=== PATIENT | female | born 1975 | race Caucasian/White ===

== ENCOUNTER → 2016-09-22 | Outpatient (CLI) | payer OTHER ==
--- NOTE | 2016-09-23 08:07 | XR ---
EXAMINATION TYPE: XR chest 2V DATE OF EXAM: 09/22/2016 COMPARISON: None HISTORY: 41-year-old female research study, clinical trial for psoriasis. Positive TB test. TECHNIQUE: Frontal and lateral views FINDINGS: The cardiomediastinal silhouette, aorta, and pulmonary vasculature are within normal limits. Large pa tient body habitus casts hazy densities over the mid to lower lungs. Otherwise, lungs and pleural spa darci are clear. IMPRESSION: No acute cardiopulmonary process.
== END | disposition home or self-care (01) ==
LOC: RADXRMAIN 18:20
PROVIDERS: ATTEND Dermatology MOHS-Micrographic Surgery
DX: Z11.1 Encounter for screening for respiratory tuberculosis (principal)
CPT/HCPCS: 71020

== ENCOUNTER → 2018-05-09 | Outpatient (CLI) | payer OTHER ==
--- NOTE | 2018-05-09 22:59 | XR ---
EXAMINATION TYPE: XR chest 2V DATE OF EXAM: 05/09/2018 COMPARISON: 09/22/2016 HISTORY: Clinical trial TECHNIQUE: Frontal and lateral views of the chest are obtained. FINDINGS: Heart and mediastinum are normal. Lungs are clear. Diaphragm is normal. Bony thorax appear s normal. Pulmonary vascularity is normal. IMPRESSION: Normal chest. No change.
== END | disposition home or self-care (01) ==
LOC: RADXRMAIN 18:07
PROVIDERS: ATTEND Dermatology MOHS-Micrographic Surgery
DX: Z00.6 Encounter for examination for normal comparison and control in clinical research program (principal)
CPT/HCPCS: 71046

== ENCOUNTER → 2018-08-15 | Outpatient (CLI) | payer OTHER ==
[2018-08-15 16:18] LABS: Blood Urea Nitrogen 9 mg/dL (7-17)
--- NOTE | 2018-08-16 07:49 | CT ---
EXAMINATION TYPE: CT neck chest w con DATE OF EXAM: 08/15/2018 COMPARISON: NONE HISTORY: Enlarged lymph nodes and difficulty breathing. CT DLP: 1770 mGycm. Automated Exposure Control for Dose Reduction was Utilized. TECHNIQUE: CT scan of the neck and thorax are performed following with IV Contrast, patient injected with 100ml mL of Isovue 300. FINDINGS: NECK: FINDINGS: Airway: No gross abnormality seen. Parotid/submandibular glands: Few benign-appearing subcentimeter intraparotid lymph nodes. Carotid/Vascular Structures: Poorly opacified arterial system due to delayed imaging. Osseous Structures: Slight dextroconvex scoliotic curvature. Other: Scattered subcentimeter lymph nodes throughout the neck bilaterally. No suspicious greater aure n 1 cm adenopathy. CHEST: LUNGS: The lungs are grossly clear, there is no concerning parenchymal mass or nodule identified. T here is no pleural effusion or pneumothorax seen. The tracheobronchial tree is patent. MEDIASTINUM: There are no greater than 1 cm hilar or mediastinal lymph nodes. No cardiomegaly or pe ricardial effusion is seen. OTHER: Liver is diffusely low dense consistent with fatty infiltration. Prominent but subcentimeter b ilateral axillary lymph nodes favored benign. IMPRESSION: No suspicious neck or thoracic adenopathy. Patent airway. No suspicious masses.
== END ==
LOC: RADCTMAIN 15:35
PROVIDERS: ATTEND Internal Medicine Hematology & Oncology
DX: R59.0 Localized enlarged lymph nodes (principal)
CPT/HCPCS: 82565; 84520; 70491; 71260; 36415; Q9967

== ENCOUNTER → 2018-11-16 | Outpatient (CLI) | payer OTHER ==
--- NOTE | 2018-11-16 10:04 | US ---
EXAMINATION TYPE: US liver DATE OF EXAM: 11/16/2018 COMPARISON: NONE CLINICAL HISTORY: R79.89 elevated LFT'S. Elevated liver enzymes EXAM MEASUREMENTS: Liver Length: 22.9 cm Gallbladder Wall: 0.2 cm CBD: 0.4 cm Right Kidney: 10.7 x 5.4 x 5.3 cm Difficult and limited study due to patient body habitus Pancreas: visualized portions wnl, limited by overlying midline bowel gas Liver: enlarged, attenuating, increased echogenicity, heterogeneous, decreased visualization of vess els suggestive of fatty infiltration. This finding limits evaluation for underlying masses. Gallbladder: wnl Evidence for sonographic Zambrano's sign: no CBD: visualized portions wnl, limited by overlying bowel gas Right Kidney: wnl IMPRESSION: 1. Sonographic findings most commonly related to hepatic steatosis, appearing at least moderate in de gree. Correlate with liver function test results. 2. Limited exam due to patient body habitus with suboptimal visualization of the pancreas and common bile duct. No current sonographic evidence of cholelithiasis nor acute cholecystitis.
--- NOTE | 2018-11-16 10:10 | US ---
EXAMINATION TYPE: US pelvis complete transvag DATE OF EXAM: 11/16/2018 COMPARISON: NONE CLINICAL HISTORY: pelvic fullness; IUD in tete. Irregular bleeding, pelvic fullness, patient has IUD, 6, para 1, miscarriage 5 TECHNIQUE: . Transabdominal sonographic images of the pelvis were acquired. Transvaginal sonographi c images were medically necessary to better assess the following anatomy: endometrium and ovaries Date of LMP: August 2018 EXAM MEASUREMENTS: Uterus: 8.2 x 3.6 x 4.1 cm Endometrial Stripe: 0.6 cm Right Ovary: 3.0 x 1.3 x 2.3 cm Left Ovary: not seen Difficult and limited study due to patient body habitus 1. Uterus: anteverted, heterogeneous 2. Endometrium: IUD appears in place, hyperechoic linear echo seen within endocervical canal 3. Right Ovary: 1.4 x 1.0 x 1.0cm dominant follicle 4. Left Ovary: not seen due to overlying bowel gas 5. Bilateral Adnexa: wnl 6. Posterior cul-de-sac: wnl IMPRESSION: 1. Heterogenous uterine myometrium. No discrete leiomyomas seen. Adenomyosis is possible and could BE further characterized with MRI pelvis. 2. Intrauterine device appears appropriately placed. 3. Dominant follicle is noted of the right ovary, physiologic. Left ovary is not seen due to overlyin g bowel gas.
== END | disposition home or self-care (01) ==
LOC: RADUSWWP 08:52
PROVIDERS: ATTEND Family Medicine
DX: K76.0 Fatty (change of) liver, not elsewhere classified (principal); R79.89 Other specified abnormal findings of blood chemistry; Z97.5 Presence of (intrauterine) contraceptive device
CPT/HCPCS: 76705; 76830; 76856

== ENCOUNTER → 2019-04-24 | Outpatient (CLI) | payer OTHER ==
--- NOTE | 2019-04-25 04:51 | XR ---
EXAMINATION TYPE: XR thoracic spine 3 views complete, XR lumbosacral spine 5 views DATE OF EXAM: 04/24/2019 Comparison: None Clinical History: 44-year-old female right-sided lower back pain, M54.9 Findings: Thoracic spine: 12 rib-bearing thoracic vertebral bodies. All pedicles are visualized. Mild degenerative disc disease with endplate spondylosis throughout the mid thoracic spine. Vertebral body heights are preserved an d alignment is maintained. Lumbar spine: 5 lumbar type vertebral bodies. Hypertrophic facet arthropathy lower lumbar spine. No pars interartic ularis defect. Trace grade 1 anterolisthesis at L4-L5. Otherwise, alignment is maintained. Mild disc space narrowing at L4-L5 and L5-S1. Impression: 1. Thoracic spine: Mild degenerative disc disease throughout the mid thoracic spine. No vertebral com pression collapse or malalignment. 2. Lumbar spine: Hypertrophic facet arthropathy lower lumbar spine with trace grade 1 anterolisthesis at L4-L5. Mild degenerative disc disease L4-L5 and L5-S1. No vertebral compression collapse.
== END | disposition home or self-care (01) ==
LOC: RADXRMAIN 17:16
PROVIDERS: ATTEND Family Medicine
DX: M51.34 Other intervertebral disc degeneration, thoracic region (principal); M43.16 Spondylolisthesis, lumbar region; M51.36 Other intervertebral disc degeneration, lumbar region
CPT/HCPCS: 72072; 72110

== ENCOUNTER → 2019-05-04 | Outpatient (CLI) | payer OTHER | END | disposition home or self-care (01) | LOC: LABWHC1 17:03 | PROVIDERS: ATTEND Dermatology | DX: L40.0 Psoriasis vulgaris (principal) | CPT/HCPCS: 36415; 86480 ==

== ENCOUNTER → 2020-10-30 | Outpatient (CLI) | payer OTHER ==
[2020-10-30 14:26] LABS: HCT 38.9 % (34.0-46.0); HGB 13.4 gm/dL (11.4-16.0); MCH 31.3 pg (25.0-35.0); MCHC 34.4 g/dL (31.0-37.0); MCV 90.7 fL (80.0-100.0); Platelet Count 371 k/uL (150-450); RBC 4.29 m/uL (3.80-5.40); RDW 13.8 % (11.5-15.5); WBC 10.7 k/uL (3.8-10.6)
[2020-10-30 14:52] LABS: Eosinophils # (M) 0.64 k/uL (0-0.7); Lymphocytes # (M) 3.64 k/uL (1.0-4.8); Monocytes # (M) 0.86 k/uL (0-1.0); Neutrophils # (M) 5.56 k/uL (1.3-7.7); Neutrophils % (M) 52 %; Nucleated Red Blood Cells 0 /100 WBC (0-0); Polychromasia Present; Total Cells Counted 100
[2020-10-31 03:33] LABS: African American GFR (CKD) 101.8 (60.0-200.0); Albumin 4.7 g/dL (3.80-4.90); Albumin/Globulin Ratio 1.74 (1.60-3.17); Anion Gap 14.5 mmol/L (4.00-12.00); BUN/Creat Ratio 22.5 Ratio (12.00-20.00); Calcium 10.6 mg/dL (8.7-10.3); Carbon Dioxide 24.5 mmol/L (21.6-31.8); Globulin 2.7 g/dL (1.6-3.3); Non-African American GFR(CKD) 87.8 (60.0-200.0); Potassium 4.6 mmol/L (3.5-5.5); Total Bilirubin 0.4 mg/dL (0.2-1.2); Total Protein 7.4 g/dL (6.2-8.2)
== END | disposition home or self-care (01) ==
LOC: LABWHC1 11:57
PROVIDERS: ATTEND Internal Medicine Critical Care Medicine
DX: U07.1 COVID-19 (principal); J12.82 Pneumonia due to coronavirus disease 2019
CPT/HCPCS: 36415; 80053; 82550; 83970; 84439; 84443; 85027

== ENCOUNTER → 2020-11-17 | Outpatient (CLI) | payer OTHER ==
[2020-11-17 17:30] LABS: African American GFR (CKD) >90 (>60 ml/min/1.73 sqM); Blood Urea Nitrogen 8 mg/dL (7-17); Non-African American GFR(CKD) >90 (>60 ml/min/1.73 sqM)
--- NOTE | 2020-11-18 07:13 | CT ---
EXAMINATION TYPE: CT angio chest DATE OF EXAM: 11/17/2020 6:02 PM COMPARISON: CT chest August 15, 2018 HISTORY: Pneumonia due to covid in July 2020 CT DLP: 700 mGycm Automated exposure control for dose reduction was used. CONTRAST: CTA scan of the thorax is performed with IV Contrast, patient injected with 100 mL of Isovue 370, pul monary embolism protocol. MIP images are created and reviewed. FINDINGS: LUNGS: The lungs are grossly clear, there is no concerning parenchymal mass or nodule identified. T here is no pleural effusion or pneumothorax seen. The tracheobronchial tree is patent. MEDIASTINUM: There is suboptimal bolus with near equal contrast in right and left heart systems and m ost dense contrast in the SVC. There is no central pulmonary embolism. Cannot entirely exclude segme ntal and subsegmental PE due to heterogeneity and less than optimal opacification of peripheral vesse ls There are no greater than 1 cm hilar or mediastinal lymph nodes. No cardiomegaly or pericardial effusion is seen. OTHER: Diffuse fatty infiltration of liver is partially imaged. IMPRESSION: Suboptimal study without central pulmonary embolism. No suspicious acute pulmonary proces s.
== END | disposition home or self-care (01) ==
LOC: RADCTMAIN 16:25
PROVIDERS: ATTEND Internal Medicine Critical Care Medicine
DX: U07.1 COVID-19 (principal); J12.82 Pneumonia due to coronavirus disease 2019
CPT/HCPCS: 82565; 84520; 71275; 36415; Q9967

== ENCOUNTER → 2021-06-24 | Outpatient (CLI) | payer OTHER ==
--- NOTE | 2021-06-25 08:04 | XR ---
EXAMINATION TYPE: XR lumbosacral spine min 4V DATE OF EXAM: 06/24/2021 COMPARISON: X-ray dated 04/24/2019 INDICATION: Multiple recent falls TECHNIQUE: Standard 5 views of the lumbar spine FINDINGS: Preserved lumbar lordosis. Questionable minimal anterolisthesis of L4 over L5. No definite vertebral body collapse or acute displaced fracture. Opposing endplate osteophytosis at L3-4 and L4-5 levels. R ather maintained intervertebral disc spaces. Severe right L5-S1 facet osteoarthropathy with milder left L5-S1 and bilateral L4-5 facet osteoarthro hayden. Arterial atherosclerotic calcifications. Suspected left renal stone measuring up to 6 mm. IMPRESSION: No definite acute lumbar vertebral fracture identified. Degenerative changes and incidental findings as described above. Further CT scan or MRI assessment can be considered if clinically required.
== END | disposition home or self-care (01) ==
LOC: RADMRIMAIN 18:36
PROVIDERS: ATTEND Family Medicine
DX: M47.817 Spondylosis without myelopathy or radiculopathy, lumbosacral region (principal)
CPT/HCPCS: 72110

== ENCOUNTER → 2021-09-09 | Outpatient (CLI) | payer OTHER ==
[2021-09-09 18:38] LABS: HCT 43.1 % (37.2-46.3); MCHC 32.5 g/dL (32.0-37.0); MCV 92.5 fL (80.0-97.0); Mean Platelet Volume 9.9 fL (9.5-12.2); NRBC Per 100 WBC 0 /100 WBCS (0.0-0.0); Platelet Count 395 X 10*3/uL (140-440); RBC 4.66 X 10*6/uL (4.10-5.20); RDW 13.3 % (11.5-14.5); WBC 15.82 X 10*3/uL (4.50-10.00)
[2021-09-09 18:42] LABS: African American GFR (CKD) 87.4 (60.0-200.0); Blood Urea Nitrogen 12.1 mg/dL (9.0-27.0); Non-African American GFR(CKD) 75.4 (60.0-200.0)
[2021-09-09 18:58] LABS: Basophils # (A) 0.11 X 10*3/uL (0.00-0.10); Basophils % (A) 0.7 %; Eosinophils % (A) 1.9 %; Immature Grans, Automated 0.8 %; Lymphocytes # (A) 4.91 X 10*3/uL (0.90-5.00); Monocytes # (A) 1.03 X 10*3/uL (0.20-1.00); Monocytes % (A) 6.5 %; Neutrophils # (A) 9.34 X 10*3/uL (1.80-7.70); Neutrophils % (A) 59.1 %
== END | disposition home or self-care (01) ==
LOC: LABWHC1 13:23
PROVIDERS: ATTEND Dermatology MOHS-Micrographic Surgery
DX: L40.0 Psoriasis vulgaris (principal)
CPT/HCPCS: 36415; 82565; 84450; 84460; 84520; 85025

== ENCOUNTER → 2021-10-09 | Outpatient (CLI) | payer OTHER ==
--- NOTE | 2021-10-09 10:17 | US ---
EXAMINATION TYPE: US abdomen complete DATE OF EXAM: 10/09/2021 COMPARISON: NONE CLINICAL HISTORY: R10.84 GENERALIZED ABD PAIN. lt flank pain, h/o renal stone 17 years ago EXAM MEASUREMENTS: Liver Length: 21.2 cm Gallbladder Wall: 0.3 cm CBD: 0.5 cm Spleen: 13.6 cm Right Kidney: 10.8 x 4.8 x 5.3 cm Left Kidney: 11.2 x 5.3 x 5.8 cm Pancreas: wnl Liver: wnl Gallbladder: wnl Evidence for sonographic Zambrano's sign: no CBD: wnl Spleen: wnl Right Kidney: wnl Left Kidney: 0.8 x 0.6cm mid pole stone Upper IVC: wnl Abd Aorta: wnl The liver is homogenous. The intrahepatic portion of the IVC and proximal abdominal aorta are within normal limits. There is no evidence of cholelithiasis. Common bile duct is unremarkable. The visu alized portions of the pancreas are homogenous. The spleen is unremarkable. Kidneys are symmetric a nd free of hydronephrosis. No renal lesions are seen. IMPRESSION: Nonobstructing calculus left kidney
--- NOTE | 2021-10-09 10:18 | US ---
EXAMINATION TYPE: US transvaginal DATE OF EXAM: 10/09/2021 COMPARISON: NONE CLINICAL HISTORY: PELVIC PAIN. lt flank pain, hysterectomy 2019 for endometriosis TECHNIQUE: TV. Transvaginal sonographic images Date of LMP: 3 years ago EXAM MEASUREMENTS: Uterus: Surgically absent Endometrial Stripe: Surgically absent Right Ovary: 1.3 x 1.1 x 1.0 cm Left Ovary: 1.8 x 1.1 x 1.5 cm 1. Uterus: Surgically absent 2. Endometrium: Surgically absent 3. Right Ovary: wnl 4. Left Ovary: wnl 5. Bilateral Adnexa: wnl 6. Posterior cul-de-sac: wnl IMPRESSION: Unremarkable postoperative pelvis.
== END | disposition home or self-care (01) ==
LOC: RADUSWWP 08:54
PROVIDERS: ATTEND Family Medicine
DX: N20.0 Calculus of kidney (principal)
CPT/HCPCS: 76700; 76830

== ENCOUNTER 2023-08-11 15:47 | Inpatient (IN) | payer OTHER ==
--- NOTE | 2023-08-11 16:17 | ED ---
Female Urogenital HPI - General Source: patient, RN notes reviewed <Kayla Mishra - Last Filed: 08/11/23 16:16> - General Source: RN notes reviewed <Elena Crandall - Last Filed: 08/11/23 18:25> - General Stated complaint: abd/back pain Time Seen by Provider: 08/11/23 16:00 - History of Present Illness Initial comments: Herber catalan is a 48-year-old female who presents to the emergency department chief complaint of left-sided back and flank pain. Patient states that this pain has been ongoing over the past few weeks but is more severe today. She endorses nausea no vomiting and feelings of fevers. She denies dysuria, hematuria. endorses increase in frequency and urgency. (Kayla Mishra) 48-year-old female with history of kidney stones presenting with chief complaint of left-sided flank pain. States she has had this pain on and off for the past 2 weeks, but the pain is becoming worse. She describes the pain as colicky and radiates to the left side of her abdomen. Also states she has been urinating more frequently today, but denies dysuria or hematuria. Admits nausea but denies vomiting. States she is on 81 mg aspirin daily but denies CKD or gastric ulcers. (Elena Crandall) - Related Data Allergies Allergy/AdvReac Type Severity Reaction Status Date / Time methotrexate Allergy Anaphylaxis Verified 08/11/23 16:21 ofloxacin Allergy Anaphylaxis Verified 08/11/23 16:21 Review of Systems ROS Other: All systems not noted in ROS Statement are negative. <Kayla Mishra - Last Filed: 08/11/23 16:16> ROS Other: All systems not noted in ROS Statement are negative. <Elena Crandall - Last Filed: 08/11/23 18:25> ROS Statement: Those systems with pertinent positive or pertinent negative responses have been documented in the HPI. General Exam <Kayla Mishra - Last Filed: 08/11/23 16:16> General appearance: alert, in no apparent distress Respiratory exam: Present: normal lung sounds bilaterally. Absent: respiratory distress, wheezes, rales, rhonchi, stridor Cardiovascular Exam: Present: regular rate, normal rhythm, normal heart sounds. Absent: systolic murmur, diastolic murmur, rubs, gallop, clicks GI/Abdominal exam: Present: soft, normal bowel sounds. Absent: distended, tenderness, guarding, rebound, rigid Back exam: Absent: CVA tenderness (R), CVA tenderness (L), rash noted Psychiatric exam: Present: normal affect, normal mood Skin exam: Present: warm, dry, intact, normal color. Absent: rash <Elena Crandall - Last Filed: 08/11/23 18:25> - General Exam Comments Initial Comments: Visual Physical Exam Vital signs reviewed General: Well-appearing, nontoxic, no acute distress. Head: Normocephalic, atraumatic Eyes: PERRLA, EOMI ENT: Airway patent Chest: Nonlabored breathing Skin: No visual rash, normal skin tone Neuro: Alert and oriented 3 Musculoskeletal: No gross abnormalities (Kayla Mishra) Course Vital Signs 08/11/23 16:15 Temperature 97.7 F Pulse Rate 101 H Respiratory 18 Rate Blood Pressure 148/85 O2 Sat by Pulse 98 Oximetry Medical Decision Making <Kayla Mishra - Last Filed: 08/11/23 16:16> - Lab Data Result diagrams: 08/11/23 16:20 08/11/23 16:20 <Eelna Crandall - Last Filed: 08/11/23 18:25> - Medical Decision Making I completed the quick note portion of this chart signed Kayla Mishra PA-C (Kayla Mishra) Was pt. sent in by a medical professional or institution ([facility], JOURNEYMAN PAINTER, urgent care, hospital, or penitentiary...) When possible be specific @ -[No] Did you speak to anyone other than the patient for history (EMS, parent, family, police, friend...)? What history was obtained from this source @ -[No] Did you review nursing and triage notes (agree or disagree)? Why? @ -[I reviewed and agree with nursing and triage notes] Were old charts reviewed (outside hosp., previous admission, EMS record, old EKG, old radiological studies, urgent care reports/EKG's, penitentiary records)? Report findings @ -[No old charts were reviewed] Differential Diagnosis (chest pain, altered mental status, abdominal pain women, abdominal pain men, vaginal bleeding, weakness, fever, dyspnea, syncope, headache, dizziness, GI bleed, back pain, seizure, CVA, palpatations, mental health, musculoskeletal)? @ -Differential Abdominal Pain Women: Nephrolithiasis, appendicitis, Cholecystitis, diverticulosis, ischemic bowel, pancreatitis, hepatitis, UTI, gastroenteritis, AAA, incarcerated hernia, bowel obstruction, constipation, inflammatory bowel, hepatitis, peptic ulcer disease, splenic infarction, perforated viscus, vulvitis, ovarian torsion, PID, kidney stone, placenta abruption, this is not meant to be an all-inclusive list EKG interpreted by me (3pts min.). @ -None X-rays interpreted by me (1pt min.). @ -[None done] CT interpreted by me (1pt min.). @ -CT revealed obstructing 9.3 mm left UPJ stone causing mild to moderate hyd ronephrosis U/S interpreted by me (1pt. min.). @ -[None done] What testing was considered but not performed or refused? (CT, X-rays, U/S, labs)? Why? @ -[None] What meds were considered but not given or refused? Why? @ -[None] Did you discuss the management of the patient with other professionals (evans jacques i.e. , PA, JOURNEYMAN PAINTER, lab, RT, psych nurse, social media sr strategy manager, aerospace mechanic, teacher, security flex officer, casework manager)? Give summary @ -Discussed management of patient with Dr. De Jesus. Agreed to IV Rocephin and blood cultures. Dr. De Jesus advised admission to medicine with consult to him. Spoke with Dr. Webber who accepted patient as admission to observation. Was smoking cessation discussed for >3mins.? @ -[No] Was critical care preformed (if so, how long)? @ -[No] Were there social determinants of health that impacted care today? How? (Homelessness, low income, unemployed, alcoholism, drug addiction, transportation, low edu. Level, literacy, decrease access to med. care, residential, rehab)? @ -[No] Was there de-escalation of care discussed even if they declined (Discuss DNR or withdrawal of care, Hospice)? DNR status @ -[No] What co-morbidities impacted this encounter? (DM, HTN, Smoking, COPD, CAD, Cancer, CVA, ARF, Chemo, Hep., AIDS, mental health diagnosis, sleep apnea, morbid obesity)? @ -[None] Was patient admitted / discharged? Hospital course, mention meds given and route, prescriptions, significant lab abnormalities, going to OR and other pertinent info. @ -Patient was admitted. Patient was seen and evaluated for left flank pain x 1 day with urinary frequency. Patient is afebrile, blood pressure is normotensive. CT revealed 9.3 mm stone with mild to moderate hydronephrosis. H er white blood cell count was 15.1 and urine white blood cell count was 98. Patient was admitted to medicine with consult to urology for possible infected stone. Patient was started on IV Rocephin and blood cultures were taken. Patient was admitted to [facility]. Case discussed with Dr. Carpio Undiagnosed new problem with uncertain prognosis? @ -[No] Drug Therapy requiring intensive monitoring for toxicity (Heparin, Nitro, Insulin, Cardizem)? @ -[No] Were any procedures done? @ -[No] Diagnosis/symptom? @ -Acute left nephrolithiasis with moderate obstruction Acute, or Chronic, or Acute on Chronic? @ -Acute Uncomplicated (without systemic symptoms) or Complicated (systemic symptoms)? @ -Uncomplicated Side effects of treatment? @ -[No] Exacerbation, Progression, or Severe Exacerbation? @ -[No] Poses a threat to life or bodily function? How? (Chest pain, [place], [place], pneumonia, PE, COPD, DKA, ARF, appy, cholecystitis, CVA, Diverticulitis, Homicidal, Suicidal, threat to staff... and all critical care pts) @ -[No] (Elena Crandall) - Lab Data Lab Results 08/11/23 08/11/23 08/11/23 Range/Units 16:20 16:20 16:20 WBC 15.1 H (3.8-10.6) k/uL RBC 3.96 (3.80-5.40) m/uL Hgb 11.5 (11.4-16.0) gm/dL Hct 36.0 (34.0-46.0) % MCV 91.0 (80.0-100.0) fL MCH 29.1 (25.0-35.0) pg MCHC 32.0 (31.0-37.0) g/dL RDW 14.4 (11.5-15.5) % Plt Count 415 (150-450) k/uL MPV 7.4 Neutrophils % 76 % Lymphocytes % 16 % Monocytes % 4 % Eosinophils % 2 % Basophils % 0 % Neutrophils # 11.5 H (1.3-7.7) k/uL Lymphocytes # 2.4 (1.0-4.8) k/uL Monocytes # 0.6 (0-1.0) k/uL Eosinophils # 0.3 (0-0.7) k/uL Basophils # 0.1 (0-0.2) k/uL Sodium 137 (137-145) mmol/L Potassium 4.4 (3.5-5.1) mmol/L Chloride 101 (98-107) mmol/L Carbon Dioxide 29 (22-30) mmol/L Anion Gap 7 mmol/L BUN 19 H (7-17) mg/dL Creatinine 0.97 (0.52-1.04) mg/dL Est GFR (CKD-EPI)AfAm 79 (>60 ml/min/1.73 sqM) Est GFR (CKD-EPI)NonAf 69 (>60 ml/min/1.73 sqM) Glucose 152 H (74-99) mg/dL Calcium 10.8 H (8.4-10.2) mg/dL Total Bilirubin 0.6 (0.2-1.3) mg/dL AST 20 (14-36) U/L ALT 20 (4-34) U/L Alkaline Phosphatase 108 (38-126) U/L Total Protein 7.6 (6.3-8.2) g/dL Albumin 4.1 (3.5-5.0) g/dL Urine Color Colorless Urine Appearance Cloudy H (Clear) Urine pH 5.5 (5.0-8.0) Ur Specific [place] 1.018 (1.001-1.035) Urine Protein Negative (Negative) Urine Glucose (UA) Negative (Negative) Urine Ketones Negative (Negative) Urine Blood Negative (Negative) Urine Nitrite Negative (Negative) Urine Bilirubin Negative (Negative) Urine Urobilinogen <2.0 (<2.0) mg/dL Ur Leukocyte Esterase Large H (Negative) Urine RBC 8 H (0-5) /hpf Urine WBC 98 H (0-5) /hpf Urine WBC Clumps Occasional H (None) /hpf Ur Squamous Epith Cells 9 H (0-4) /hpf Urine Bacteria Occasional H (None) /hpf Urine Mucus Rare H (None) /hpf Disposition <aKyla Mishra - Last Filed: 08/11/23 16:16> Time of Disposition: 18:10 <Elena Crandall - Last Filed: 08/11/23 18:25> Clinical Impression: Left nephrolithiasis Disposition: ADMITTED IP TO THIS [facility] Condition: Stable Referrals: Natalya Blankenship DO [Primary Care Provider] - 1-2 days
[2023-08-11 16:52] LABS: Basophils # (A) 0.1 k/uL (0-0.2); Basophils % (A) 0 %; Eosinophils # (A) 0.3 k/uL (0-0.7); Eosinophils % (A) 2 %; HGB 11.5 gm/dL (11.4-16.0); Lymphocytes # (A) 2.4 k/uL (1.0-4.8); Lymphocytes % (A) 16 %; MCH 29.1 pg (25.0-35.0); Mean Platelet Volume 7.4; Monocytes # (A) 0.6 k/uL (0-1.0); Monocytes % (A) 4 %; Neutrophils # (A) 11.5 k/uL (1.3-7.7); Neutrophils % (A) 76 %; Platelet Count 415 k/uL (150-450); RBC 3.96 m/uL (3.80-5.40); RDW 14.4 % (11.5-15.5); WBC 15.1 k/uL (3.8-10.6)
[2023-08-11 17:01] LABS: ALT 20 U/L (4-34); AST 20 U/L (14-36); African American GFR (CKD) 79 (>60 ml/min/1.73 sqM); Albumin 4.1 g/dL (3.5-5.0); Alkaline Phosphatase 108 U/L (38-126); Anion Gap 7 mmol/L; Blood Urea Nitrogen 19 mg/dL (7-17); Calcium 10.8 mg/dL (8.4-10.2); Carbon Dioxide 29 mmol/L (22-30); Chloride 101 mmol/L (98-107); Glucose 152 mg/dL (74-99); Non-African American GFR(CKD) 69 (>60 ml/min/1.73 sqM); Potassium 4.4 mmol/L (3.5-5.1); Sodium 137 mmol/L (137-145); Total Bilirubin 0.6 mg/dL (0.2-1.3); Total Protein 7.6 g/dL (6.3-8.2)
[2023-08-11 17:11] LABS: Appearance,Urine Cloudy (Clear); Bacteria,Urine Occasional /hpf; Bilirubin,Urine Negative (Negative); Blood,Urine Negative (Negative); Color,Urine Colorless; Glucose,Urine (UA) Negative (Negative); Ketones,Urine Negative (Negative); Leukocyte Esterase,Urine Large (Negative); Mucus,Urine Rare /hpf; Nitrite,Urine Negative (Negative); PH, Urine 5.5 (5.0-8.0); Protein,Urine Negative (Negative); RBC,Urine 8 /hpf (0-5); Specific Gravity,Urine 1.018 (1.001-1.035); Squamous Epithelial Cell,Urine 9 /hpf (0-4); Urobilinogen,Urine <2.0 mg/dL (<2.0); WBC,Urine 98 /hpf (0-5)
[2023-08-11] MEDS: SODIUM CHLORIDE 0.9% 1,000 ML IV STA ×2 (17:17→19:50)
[2023-08-11] MEDS: KETOROLAC 15 MG/ML 1 ML VIAL IVP STA ×2 (17:21→20:53)
[2023-08-11] MEDS: ONDANSETRON 4 MG/2 ML VIAL IVP STA (17:21)
--- NOTE | 2023-08-11 17:32 | CT ---
EXAMINATION TYPE: CT abdomen pelvis wo con DATE OF EXAM: 08/11/2023 COMPARISON: None HISTORY: Left side flank pain CT DLP: 2233 mGycm Automated exposure control for dose reduction was used. TECHNIQUE: Helical acquisition of images was performed from the lung bases through the pelvis. FINDINGS: The lungs are clear. Gallbladder is normal and there is no gallstone, wall thickening, pericholecystic fluid or distention . There is no biliary ductal dilatation. There is no organomegaly of the liver, pancreas, spleen or adrenal glands. There is mild to moderate left hydronephrosis secondary to a 9.3 mm left UPJ calculus. The right kidn ey is unremarkable. The caliber of the abdominal aorta is normal and there is no retroperitoneal adenopathy or hemorrhage . The bowel loops are normal in caliber is no evidence of obstruction. No inflammatory changes are iden tified in the mesentery and there is no free intraperitoneal air or fluid. There is no pelvic mass, free fluid, abscess or adenopathy. 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 The osseous structures and soft tissues are unremarkable. IMPRESSION: Obstructing 9.3 mm left UPJ calculus causing mild to moderate left hydronephrosis.
[2023-08-11] MEDS ORDERED: NALOXONE 0.4 MG/ML 1 ML VIAL IV PRN (18:02)
[2023-08-12] MEDS: ONDANSETRON 4 MG/2 ML VIAL IVP PRN (01:01)
[2023-08-12] MEDS: MORPHINE SULFATE 4 MG/ML SYRINGE IVP STA (02:01)
[2023-08-12] MEDS ORDERED: DEXTROSE 50% SYRINGE 50 ML IVP PRN ×2 (05:41)
--- NOTE | 2023-08-12 05:47 | P.HPIM ---
History of Present Illness H&P Date: 08/11/23 Chief Complaint: flank pain 48 year old female with history of kidney stone , DM , hypertension Patient coming in for 2-week history of severe left flank pain 10 out of 10 in severity radiating down her groin got worse over the past couple days she is known to have history of kidney stones she denies any dysuria hematuria increased frequency of urination. She reports a lot of nausea denies any vomiting she endorses chills. But mainly her flank pain has gotten worse today she has a baby at home 22 months old and she has been pushing it to come to the hospital however due to severe pain today she decided to come in for evaluation Patient also reports history of high calcium level however she does not know what is causing it she is not aware of any testing that has been done in the past Patient otherwise denies any chest pain trouble breathing denies any GI bleeding diarrhea review of systems Pertinent positives as noted in HPI. All other systems were reviewed and are negative on exam Constitutional: No acute distress Eyes: Anicteric sclerae, moist conjunctiva, Pupils equal round reactive to light ENMT: NC/AT Oropharynx clear, no erythema, or exudates Neck: Supple, no masses, or JVD No carotid bruits No thyromegaly Lungs: Clear to auscultation Clear to percussion Normal respiratory effort, no accessory muscle use Cardiovascular: Heart regular in rate and rhythm, No murmurs, gallops, or rubs No peripheral edema Abdominal: Soft Tenderness to palpation of the left costovertebral angle and left flank, no guarding, rebound or rigidity Abdomen moving with respiration Normoactive bowel sounds Extremities: No digital cyanosis No clubbing Pedal pulses intact and symmetrical Radial pulses intact and symmetrical No calf tenderness Psychiatric: Alert and oriented to person, place and time Appropriate affect fair judgement Neuro Muscles Strength 5/5 in all 4 extremities Sensation to light touch grossly present throughout Cranial nerves II-XII grossly intact Past Medical History Past Medical History: Diabetes Mellitus, Hyperlipidemia, Hypertension 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 History of Any Multi-Drug Resistant Organisms: None Reported Past Surgical History: Back Surgery, Section, Hysterectomy, Orthopedic Surgery Additional Past Surgical History / Comment(s): carpel, laparoscopy Past Psychological History: No Psychological Hx Reported, Anxiety, Depression Smoking Status: Former smoker Past Alcohol Use History: Occasional Past Drug Use History: Marijuana Medications and Allergies Home Medications Medication Instructions Recorded Confirmed Type Aspirin [[place] Aspirin EC] 81 mg PO DAILY 08/11/23 08/11/23 History Atorvastatin [Lipitor] 20 mg PO HS 08/11/23 08/11/23 History Cholecalciferol (Vitamin D3) 50 mcg PO DAILY 08/11/23 08/11/23 History [Vitamin D3 (50 Mcg = 2000 Iu)] Fluticasone Nasal [place] [Flonase 1 spray EA NOSTRIL DAILY PRN 08/11/23 08/11/23 History Nasal [place]] Insulin Glargine,Hum.rec.anlog 36 units SQ HS 08/11/23 08/11/23 History [Lantus Solostar Pen] Lisinopril-Hctz 20-25 mg 1 tab PO DAILY 08/11/23 08/11/23 History [Zestoretic 20-25] Loratadine [Claritin] 10 mg PO HS 08/11/23 08/11/23 History Magnesium Oxide [Mag-Ox] 400 mg PO DAILY 08/11/23 08/11/23 History Melatonin 5 mg PO HS PRN 08/11/23 08/11/23 History Montelukast [Singulair] 10 mg PO HS 08/11/23 08/11/23 History Naproxen [Naprosyn] 500 mg PO BID PRN 08/11/23 08/11/23 History Omeprazole [PriLOSEC] 20 mg PO DAILY 08/11/23 08/11/23 History Pioglitazone [Actos] 30 mg PO DAILY 08/11/23 08/11/23 History Secukinumab [Cosentyx Pen (2 Pens)] 150 mg SQ QMONTHLY 08/11/23 08/11/23 History allopurinoL [Zyloprim] 100 mg PO DAILY 08/11/23 08/11/23 History buPROPion HCL [Wellbutrin XL] 150 mg PO DAILY 08/11/23 08/11/23 History metFORMIN HCL [Glucophage] 1,000 mg PO W/SUPPER 08/11/23 08/11/23 History metFORMIN HCL [Glucophage] 500 mg PO DAILY 08/11/23 08/11/23 History Allergies Allergy/AdvReac Type Severity Reaction Status Date / Time methotrexate Allergy Anaphylaxis Verified 08/11/23 19:23 ofloxacin Allergy Anaphylaxis Verified 08/11/23 19:23 Physical Exam Vitals: Vital Signs Temp Pulse Resp BP Pulse Ox 08/12/23 03:00 91 18 135/78 99 08/12/23 00:00 99 20 144/78 99 08/11/23 21:42 98.5 F 98 18 124/73 99 08/11/23 16:15 97.7 F 101 H 18 148/85 98 Intake and Output 08/11/23 08/11/23 08/12/23 14:59 22:59 06:59 Other: Weight 120.202 kg Results CBC & Chem 7: 08/11/23 16:20 08/11/23 16:20 Labs: Abnormal Lab Results - Last 24 Hours (Table) 08/11/23 08/11/23 08/11/23 Range/Units 16:20 16:20 16:20 WBC 15.1 H (3.8-10.6) k/uL Neutrophils # 11.5 H (1.3-7.7) k/uL BUN 19 H (7-17) mg/dL Glucose 152 H (74-99) mg/dL Calcium 10.8 H (8.4-10.2) mg/dL Urine Appearance Cloudy H (Clear) Ur Leukocyte Esterase Large H (Negative) Urine RBC 8 H (0-5) /hpf Urine WBC 98 H (0-5) /hpf Urine WBC Clumps Occasional H (None) /hpf Ur Squamous Epith Cells 9 H (0-4) /hpf Urine Bacteria Occasional H (None) /hpf Urine Mucus Rare H (None) /hpf Assessment and Plan Assessment: 48-year-old female with diabetes mellitus hypertension history of kidney stones coming in with severe colicky left flank pain I discussed the case with ED doctor and accepted the admission for obstructive left UPJ stone with moderate hydronephrosis with anticipated length of stay more than 2 midnights Sepsis secondary to complicated UTI secondary to obstructing kidney stone Obstructive kidney stone CT finding of 9.3 mm left UPJ obstructing stone with moderate hydronephrosis Renal function unremarkable sodium 137 potassium 4.4 BUN 19 creatinine 0.9 Urine analysis positive for leukocyte esterase follow-up cultures Follow-up cultures Initiated on Rocephin 1 g IV piggyback daily Pain control with Toradol 50 mg IV push every 6 hours as needed Morphine IV push 4 mg as needed for pain control Zofran 4 mg IV push every 8 hours as needed for nausea vomiting IV fluid hydration status post 2 L normal saline continue with 130 cc/h Urology consultation Chronic conditions Hypertension controlled continue with home blood pressure medications Lisinopril 20 mg daily Hold hydrochlorothiazide Hypercalcemia Patient reports long history of hypercalcemia borderline Hold hydrochlorothiazide this could be a reason for hyperglycemia Check PTH intact, phosphorus level, vitamin D hydroxy 25, vitamin hydroxy 1, 25 levels Diabetes mellitus insulin sliding scale Full code DVT prophylaxis mechanical due to anticipated surgery GI prophylaxis Protonix p.o. daily
[2023-08-12] MEDS: MORPHINE SULFATE 4 MG/ML SYRINGE IVP PRN (06:12)
[2023-08-12] MEDS: SODIUM CHLORIDE 0.9% 1,000 ML IV SCH (06:17)
[2023-08-12] MEDS: KETOROLAC 15 MG/ML 1 ML VIAL IVP PRN (06:17)
[2023-08-12 06:26] LABS: Glucose,Whole Blood 180 mg/dL (70-110)
[2023-08-12] MEDS: INSULIN ASPART (NovoLOG) 100 UNIT/ML VIAL SQ SCH (06:55)
[2023-08-12] MEDS: lisinopriL 20 MG TAB PO SCH (07:35)
[2023-08-12] MEDS: buPROPion XL 150 MG TAB.ER.24H PO SCH (07:38)
[2023-08-12] MEDS: PANTOPRAZOLE 40 MG TABLET PO SCH (07:38)
--- NOTE | 2023-08-12 08:09 | P.GSCN ---
History of Present Illness Consult date: 08/12/23 History of present illness: 48 yo female admitted with left flank pain due to a 9 mm lt upj stone. She presented with a 2 week history of left flank pain. Her urine is somewhat inflammed For this reason she was admitted for iv ab and further evaluation. the patient is afebrile and her vital signs are stable. She is feeling better. She passed a stone many years ago. Review of Systems All systems: negative - Constitutional Denies fever, Denies weight loss - EENT Eyes: denies blurred vision Ears, nose, mouth and throat: Denies dysphagia - Cardiovascular Denies chest pain, Denies shortness of breath - Respiratory Denies cough, Denies 7 - Gastrointestinal Reports as per HPI - Genitourinary Genitourinary: Denies dysuria, Denies hematuria - Integumentary Denies rash, Denies unusual bruising - Neurological Denies headaches, Denies syncope - Hematologic/Lymphatic Denies easy bleeding, Denies easy bruising Past Medical History Past Medical History: Diabetes Mellitus, Hyperlipidemia, Hypertension 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 History of Any Multi-Drug Resistant Organisms: None Reported Past Surgical History: Back Surgery, Section, Hysterectomy, Orthopedic Surgery Additional Past Surgical History / Comment(s): carpel, laparoscopy Past Psychological History: No Psychological Hx Reported, Anxiety, Depression Smoking Status: Former smoker Past Alcohol Use History: Occasional Past Drug Use History: Marijuana Medications and Allergies Home Medications Medication Instructions Recorded Confirmed Type Aspirin [[place] Aspirin EC] 81 mg PO DAILY 08/11/23 08/11/23 History Atorvastatin [Lipitor] 20 mg PO HS 08/11/23 08/11/23 History Cholecalciferol (Vitamin D3) 50 mcg PO DAILY 08/11/23 08/11/23 History [Vitamin D3 (50 Mcg = 2000 Iu)] Fluticasone Nasal [place] [Flonase 1 spray EA NOSTRIL DAILY PRN 08/11/23 08/11/23 History Nasal [place]] Insulin Glargine,Hum.rec.anlog 36 units SQ HS 08/11/23 08/11/23 History [Lantus Solostar Pen] Lisinopril-Hctz 20-25 mg 1 tab PO DAILY 08/11/23 08/11/23 History [Zestoretic 20-25] Loratadine [Claritin] 10 mg PO HS 08/11/23 08/11/23 History Magnesium Oxide [Mag-Ox] 400 mg PO DAILY 08/11/23 08/11/23 History Melatonin 5 mg PO HS PRN 08/11/23 08/11/23 History Montelukast [Singulair] 10 mg PO HS 08/11/23 08/11/23 History Naproxen [Naprosyn] 500 mg PO BID PRN 08/11/23 08/11/23 History Omeprazole [PriLOSEC] 20 mg PO DAILY 08/11/23 08/11/23 History Pioglitazone [Actos] 30 mg PO DAILY 08/11/23 08/11/23 History Secukinumab [Cosentyx Pen (2 Pens)] 150 mg SQ QMONTHLY 08/11/23 08/11/23 History allopurinoL [Zyloprim] 100 mg PO DAILY 08/11/23 08/11/23 History buPROPion HCL [Wellbutrin XL] 150 mg PO DAILY 08/11/23 08/11/23 History metFORMIN HCL [Glucophage] 1,000 mg PO W/SUPPER 08/11/23 08/11/23 History metFORMIN HCL [Glucophage] 500 mg PO DAILY 08/11/23 08/11/23 History Allergies Allergy/AdvReac Type Severity Reaction Status Date / Time methotrexate Allergy Anaphylaxis Verified 08/11/23 19:23 ofloxacin Allergy Anaphylaxis Verified 08/11/23 19:23 Surgical - Exam Vital Signs Temp Pulse Resp BP Pulse Ox 97.7 F 101 H 18 148/85 98 08/11/23 16:15 08/11/23 16:15 08/11/23 16:15 08/11/23 16:15 08/11/23 16:15 - General well developed, well nourished, no distress - Eyes normal ocular movement, no icteric - ENT no hearing loss, no congestion - Neck no masses, trachea midline - Respiratory normal respiratory effort, clear to auscultation - Abdomen Abdomen: soft, non tender, no guarding, no rigid, no rebound - Integumentary no rash, no abnormal pigmentation - Neurologic no disoriented, no combative - Psychiatric oriented to time, oriented to person, oriented to place, speech is normal, memory intact Results - Labs 08/11/23 16:20 08/11/23 16:20 Abnormal Lab Results - Last 24 Hours (Table) 08/11/23 08/11/23 08/11/23 Range/Units 16:20 16:20 16:20 WBC 15.1 H (3.8-10.6) k/uL Neutrophils # 11.5 H (1.3-7.7) k/uL BUN 19 H (7-17) mg/dL Glucose 152 H (74-99) mg/dL Calcium 10.8 H (8.4-10.2) mg/dL Urine Appearance Cloudy H (Clear) Ur Leukocyte Esterase Large H (Negative) Urine RBC 8 H (0-5) /hpf Urine WBC 98 H (0-5) /hpf Urine WBC Clumps Occasional H (None) /hpf Ur Squamous Epith Cells 9 H (0-4) /hpf Urine Bacteria Occasional H (None) /hpf Urine Mucus Rare H (None) /hpf Diabetes panel 08/11/23 Range/Units 16:20 Sodium 137 (137-145) mmol/L Potassium 4.4 (3.5-5.1) mmol/L Chloride 101 (98-107) mmol/L Carbon Dioxide 29 (22-30) mmol/L BUN 19 H (7-17) mg/dL Creatinine 0.97 (0.52-1.04) mg/dL Glucose 152 H (74-99) mg/dL Calcium 10.8 H (8.4-10.2) mg/dL AST 20 (14-36) U/L ALT 20 (4-34) U/L Alkaline Phosphatase 108 (38-126) U/L Total Protein 7.6 (6.3-8.2) g/dL Albumin 4.1 (3.5-5.0) g/dL Calcium panel 08/11/23 Range/Units 16:20 Calcium 10.8 H (8.4-10.2) mg/dL Albumin 4.1 (3.5-5.0) g/dL Pituitary panel 08/11/23 Range/Units 16:20 Sodium 137 (137-145) mmol/L Potassium 4.4 (3.5-5.1) mmol/L Chloride 101 (98-107) mmol/L Carbon Dioxide 29 (22-30) mmol/L BUN 19 H (7-17) mg/dL Creatinine 0.97 (0.52-1.04) mg/dL Glucose 152 H (74-99) mg/dL Calcium 10.8 H (8.4-10.2) mg/dL Adrenal panel 08/11/23 Range/Units 16:20 Sodium 137 (137-145) mmol/L Potassium 4.4 (3.5-5.1) mmol/L Chloride 101 (98-107) mmol/L Carbon Dioxide 29 (22-30) mmol/L BUN 19 H (7-17) mg/dL Creatinine 0.97 (0.52-1.04) mg/dL Glucose 152 H (74-99) mg/dL Calcium 10.8 H (8.4-10.2) mg/dL Total Bilirubin 0.6 (0.2-1.3) mg/dL AST 20 (14-36) U/L ALT 20 (4-34) U/L Alkaline Phosphatase 108 (38-126) U/L Total Protein 7.6 (6.3-8.2) g/dL Albumin 4.1 (3.5-5.0) g/dL - Imaging CT scan - abdomen: report reviewed, image reviewed CT scan - pelvis: report reviewed Assessment and Plan Assessment: Impression: 9mm left upj stone. possible uti Recommendations : The patient is receibving antibiotics. Given the location of the stone and the possible uti I recommend no surgical treatment at present She will be a good candidate for eswl in the future. I will get a kub to make sure that the stone can be seen for an eswl.
[2023-08-12 11:18] LABS: BUN/Creat Ratio 11.88 Ratio (12.00-20.00); Calcium 9.7 mg/dL (8.7-10.3); Carbon Dioxide 22.7 mmol/L (21.6-31.8); Chloride 101 mmol/L (96-109); Glucose 155 mg/dL (70-110); Phosphorus 3.3 mg/dL (2.4-5.1); Potassium 4.3 mmol/L (3.5-5.5); Sodium 137 mmol/L (135-145)
--- NOTE | 2023-08-12 11:45 | XR ---
EXAMINATION TYPE: XR KUB DATE OF EXAM: 08/12/2023 HISTORY: Pain Comparison: None.Single KUB is submitted for interpretation. Findings: Right renal calculi: None Visualized. Right ureteral calculi: None Visualized. Left renal calculi: None Visualized. Left ureteral calculi: 1 cm calculus at the level of the left UPJ is noted adjacent to the left L3 t ransverse process. Pelvic calcifications: None Visualized. Bowel gas pattern is unremarkable. No free air. No mass effects. IMPRESSION: 1. Approximate 1 cm calculus at the level of the left UPJ is noted adjacent to the left L3 transverse process.
[2023-08-12 11:56] LABS: Glucose,Whole Blood 116 mg/dL (70-110)
--- NOTE | 2023-08-12 15:38 | P.PN ---
Subjective Progress Note Date: 08/12/23 Hospital Course: 48-year-old female with past history of renal stones, diabetes, hypertension, dyslipidemia, gout, GERD, asthma presenting with severe left flank pain. In the ED, temperature was 97.7, pulse 101, respiratory rate 18, blood pressure 148/85, saturating 98% on room air. WBC 15.1, creatinine 0.97, urinalysis showed large leukocyte esterase, occasional bacteria. CT abdomen pelvis shows no obstructing 9.3 mm left UPJ calculus with mild to moderate left hydronephrosis. Urology consulted. Subjective: Patient seen and examined at bedside. No acute events overnight. Does have occasional left flank pain. Pertinent positives and negatives as discussed above, a complete review of systems was performed and all other systems are negative. Vitals Signs Reviewed. General: Nontoxic, no distress, appears at stated age, morbidly obese Derm: Warm, dry Head: Atraumatic, normocephalic, symmetric Eyes: EOMI, no lid lag, anicteric sclera Mouth: No lip lesion, mucus membranes moist Cardiovascular: S1S2 reg, no murmur Lungs: CTA bilateral, no rhonchi, no rales, no accessory muscle use Abdominal: Soft, nontender to palpation, no guarding, no appreciable organomegaly Ext: No gross muscle atrophy, no edema, no contractures Neuro: CN II-XI grossly intact, no focal neuro deficits Psych: Alert, oriented, appropriate affect Data Reviewed Today: Pertinent Labs: Creatinine 1.6, glucose range between 1 16-1 81 CBC pending, will be reviewed when available Imaging: KUB shows approximately 1 cm calculus at the level of left UPJ Assessment and Plan: Active: Left obstructing renal calculus, with mild to moderate hydronephrosis Sepsis secondary to urinary tract infection Acute kidney injury History of hypertension No interventions at this point, consider ESWL of discharge Continue on IV ceftriaxone 1 g every 24 hours Blood cultures pending Lisinopril discontinued, hold antihypertensives Pain control with IV morphine as needed, monitor for sedation, IV Toradol discontinued Continue normal saline at 150 cc an hour Repeat CBC and BMP tomorrow Type 2 diabetes Levemir 20, sliding scale insulin, monitor for hypoglycemia Chronic: Gout Dyslipidemia GERD Asthma DVT ppx: SCDs Code status: Full code Anticipated discharge place: Pending clinical course Anticipated discharge time: Pending clinical course Switch to inpatient Objective - Vital Signs Vital signs: Vital Signs Temp 100.1 F H 08/12/23 14:34 Pulse 97 08/12/23 14:34 Resp 19 08/12/23 14:34 BP 116/68 08/12/23 14:34 Pulse Ox 99 08/12/23 14:34 FiO2 Intake & Output 08/11/23 08/12/23 08/12/23 18:59 06:59 18:59 Intake Total 300 Balance 300 Weight 120.202 kg Intake: Oral 300 - Labs CBC & Chem 7: 08/11/23 16:20 08/12/23 07:37 Labs: Abnormal Lab Results - Last 24 Hours (Table) 08/11/23 08/11/23 08/11/23 Range/Units 16:20 16:20 16:20 WBC 15.1 H (3.8-10.6) k/uL Neutrophils # 11.5 H (1.3-7.7) k/uL Anion Gap (4.00-12.00) mmol/L BUN 19 H (7-17) mg/dL Creatinine (0.6-1.5) mg/dL Est GFR (CKD-EPI) (>=60) BUN/Creatinine Ratio (12.00-20.00) Ratio Glucose 152 H (74-99) mg/dL POC Glucose (mg/dL) (70-110) mg/dL Calcium 10.8 H (8.4-10.2) mg/dL Vitamin D 25-Hydroxy (30.0-100.0) ng/mL Urine Appearance Cloudy H (Clear) Ur Leukocyte Esterase Large H (Negative) Urine RBC 8 H (0-5) /hpf Urine WBC 98 H (0-5) /hpf Urine WBC Clumps Occasional H (None) /hpf Ur Squamous Epith Cells 9 H (0-4) /hpf Urine Bacteria Occasional H (None) /hpf Urine Mucus Rare H (None) /hpf 08/12/23 08/12/23 08/12/23 Range/Units 06:24 07:37 11:54 WBC (3.8-10.6) k/uL Neutrophils # (1.3-7.7) k/uL Anion Gap 13.30 H (4.00-12.00) mmol/L BUN (7-17) mg/dL Creatinine 1.6 H (0.6-1.5) mg/dL Est GFR (CKD-EPI) 39 L (>=60) BUN/Creatinine Ratio 11.88 L (12.00-20.00) Ratio Glucose 155 H (74-99) mg/dL POC Glucose (mg/dL) 180 H 116 H (70-110) mg/dL Calcium (8.4-10.2) mg/dL Vitamin D 25-Hydroxy 19.5 L (30.0-100.0) ng/mL Urine Appearance (Clear) Ur Leukocyte Esterase (Negative) Urine RBC (0-5) /hpf Urine WBC (0-5) /hpf Urine WBC Clumps (None) /hpf Ur Squamous Epith Cells (0-4) /hpf Urine Bacteria (None) /hpf Urine Mucus (None) /hpf
[2023-08-12 16:11] LABS: Basophils % (A) 0 %; Eosinophils # (A) 0.1 k/uL (0-0.7); Eosinophils % (A) 0 %; HCT 30.8 % (34.0-46.0); Lymphocytes # (A) 0.7 k/uL (1.0-4.8); Lymphocytes % (A) 6 %; MCH 29.6 pg (25.0-35.0); MCHC 32.3 g/dL (31.0-37.0); MCV 91.8 fL (80.0-100.0); Mean Platelet Volume 7.8; Monocytes # (A) 0.5 k/uL (0-1.0); Monocytes % (A) 4 %; Neutrophils # (A) 10.8 k/uL (1.3-7.7); Neutrophils % (A) 89 %; Platelet Count 347 k/uL (150-450); RBC 3.35 m/uL (3.80-5.40); RDW 14.8 % (11.5-15.5); WBC 12.1 k/uL (3.8-10.6)
[2023-08-12 16:20] LABS: HGB 9.9 gm/dL (11.4-16.0)
[2023-08-12 18:00] LABS: Glucose,Whole Blood 114 mg/dL (70-110)
[2023-08-12] MEDS ORDERED: INSULIN DETEMIR (LEVEMIR) 100 UNIT/ML SYR SQ SCH (21:00)
[2023-08-12] MEDS: INSULIN DETEMIR (LEVEMIR) 100 UNIT/ML SYR SQ SCH (21:10)
[2023-08-12] MEDS: ATORVASTATIN 20 MG TAB PO SCH (21:10)
[2023-08-12] MEDS: MONTELUKAST 10 MG TAB PO SCH (21:10)
[2023-08-12 21:16] LABS: Glucose,Whole Blood 157 mg/dL (70-110)
[2023-08-13 01:15] LABS: Glucose,Whole Blood 123 mg/dL (70-110)
[2023-08-13 05:16] LABS: Glucose,Whole Blood 122 mg/dL (70-110)
[2023-08-13 05:27] LABS: Basophils % (A) 0 %; Eosinophils # (A) 0.1 k/uL (0-0.7); Eosinophils % (A) 1 %; HCT 31.3 % (34.0-46.0); HGB 10.3 gm/dL (11.4-16.0); Lymphocytes # (A) 1.8 k/uL (1.0-4.8); Lymphocytes % (A) 15 %; MCHC 32.9 g/dL (31.0-37.0); MCV 90.9 fL (80.0-100.0); Mean Platelet Volume 7.7; Monocytes # (A) 0.5 k/uL (0-1.0); Monocytes % (A) 5 %; Neutrophils # (A) 8.9 k/uL (1.3-7.7); Neutrophils % (A) 77 %; Platelet Count 357 k/uL (150-450); RBC 3.44 m/uL (3.80-5.40); RDW 14.7 % (11.5-15.5); WBC 11.6 k/uL (3.8-10.6)
[2023-08-13 06:23] LABS: African American GFR (CKD) 42 (>60 ml/min/1.73 sqM); Anion Gap 6 mmol/L; Blood Urea Nitrogen 19 mg/dL (7-17); Calcium 9.2 mg/dL (8.4-10.2); Carbon Dioxide 27 mmol/L (22-30); Chloride 100 mmol/L (98-107); Glucose 116 mg/dL (74-99); Non-African American GFR(CKD) 36 (>60 ml/min/1.73 sqM); Potassium 4.2 mmol/L (3.5-5.1); Sodium 133 mmol/L (137-145)
[2023-08-13] MEDS: allopurinoL 100 MG TAB PO SCH (08:27)
--- NOTE | 2023-08-13 10:53 | P.PN ---
Subjective Progress Note Date: 08/13/23 Objective - Vital Signs Vital signs: Vital Signs Temp 98.7 F 08/13/23 07:20 Pulse 95 08/13/23 07:20 Resp 18 08/13/23 07:20 BP 96/61 08/13/23 07:20 Pulse Ox 94 L 08/13/23 07:20 FiO2 Intake & Output 08/12/23 08/13/23 08/13/23 18:59 06:59 18:59 Intake Total 300 118 Balance 300 118 Weight 120.202 kg Intake: Oral 300 118 Other: # Voids 1 - Labs CBC & Chem 7: 08/13/23 04:49 08/13/23 04:49 Labs: Abnormal Lab Results - Last 24 Hours (Table) 08/12/23 08/12/23 08/12/23 Range/Units 07:37 11:54 15:40 WBC 12.1 H (3.8-10.6) k/uL RBC 3.35 L (3.80-5.40) m/uL Hgb 9.9 L D (11.4-16.0) gm/dL Hct 30.8 L (34.0-46.0) % Neutrophils # 10.8 H (1.3-7.7) k/uL Lymphocytes # 0.7 L (1.0-4.8) k/uL Sodium (137-145) mmol/L Anion Gap 13.30 H (4.00-12.00) mmol/L BUN (7-17) mg/dL Creatinine 1.6 H (0.6-1.5) mg/dL Est GFR (CKD-EPI) 39 L (>=60) BUN/Creatinine Ratio 11.88 L (12.00-20.00) Ratio Glucose 155 H (70-110) mg/dL POC Glucose (mg/dL) 116 H (70-110) mg/dL Hemoglobin A1c (<=6.0) % Vitamin D 25-Hydroxy 19.5 L (30.0-100.0) ng/mL 08/12/23 08/12/23 08/13/23 Range/Units 17:59 21:14 01:14 WBC (3.8-10.6) k/uL RBC (3.80-5.40) m/uL Hgb (11.4-16.0) gm/dL Hct (34.0-46.0) % Neutrophils # (1.3-7.7) k/uL Lymphocytes # (1.0-4.8) k/uL Sodium (137-145) mmol/L Anion Gap (4.00-12.00) mmol/L BUN (7-17) mg/dL Creatinine (0.6-1.5) mg/dL Est GFR (CKD-EPI) (>=60) BUN/Creatinine Ratio (12.00-20.00) Ratio Glucose (70-110) mg/dL POC Glucose (mg/dL) 114 H 157 H 123 H (70-110) mg/dL Hemoglobin A1c (<=6.0) % Vitamin D 25-Hydroxy (30.0-100.0) ng/mL 08/13/23 08/13/23 08/13/23 Range/Units 04:49 04:49 04:49 WBC 11.6 H (3.8-10.6) k/uL RBC 3.44 L (3.80-5.40) m/uL Hgb 10.3 L (11.4-16.0) gm/dL Hct 31.3 L (34.0-46.0) % Neutrophils # 8.9 H (1.3-7.7) k/uL Lymphocytes # (1.0-4.8) k/uL Sodium 133 L (137-145) mmol/L Anion Gap (4.00-12.00) mmol/L BUN 19 H (7-17) mg/dL Creatinine 1.65 H (0.6-1.5) mg/dL Est GFR (CKD-EPI) (>=60) BUN/Creatinine Ratio (12.00-20.00) Ratio Glucose 116 H (70-110) mg/dL POC Glucose (mg/dL) (70-110) mg/dL Hemoglobin A1c 7.9 H (<=6.0) % Vitamin D 25-Hydroxy (30.0-100.0) ng/mL 08/13/23 Range/Units 05:15 WBC (3.8-10.6) k/uL RBC (3.80-5.40) m/uL Hgb (11.4-16.0) gm/dL Hct (34.0-46.0) % Neutrophils # (1.3-7.7) k/uL Lymphocytes # (1.0-4.8) k/uL Sodium (137-145) mmol/L Anion Gap (4.00-12.00) mmol/L BUN (7-17) mg/dL Creatinine (0.6-1.5) mg/dL Est GFR (CKD-EPI) (>=60) BUN/Creatinine Ratio (12.00-20.00) Ratio Glucose (70-110) mg/dL POC Glucose (mg/dL) 122 H (70-110) mg/dL Hemoglobin A1c (<=6.0) % Vitamin D 25-Hydroxy (30.0-100.0) ng/mL Microbiology - Last 24 Hours (Table) 08/11/23 19:00 Blood Culture - Preliminary Blood 08/11/23 19:25 Blood Culture - Preliminary Blood Assessment and Plan Assessment: The patient is in the hospital with 1 urine infection and to a 9 mm left UPJ stone. Her pain is controlled. She is being treated for the infection. Impression: The patient has a 9 mm left UPJ stone. I discussed at length all the options including observation spontaneous passage ureteroscopic manipulation percutaneous manipulation or shockwave lithotripsy. Given that the stone is still really in the renal pelvis it is seen on KUB I recommend shockwave litho tripsy. I do not recommend ureteroscopic intervention because of the infection. She should contact her office Tuesday for follow-up in which time we will set her up for shockwave lithotripsy.
[2023-08-13 12:24] LABS: Glucose,Whole Blood 124 mg/dL (70-110)
--- NOTE | 2023-08-13 14:33 | P.PN ---
Subjective Progress Note Date: 08/13/23 Hospital Course: 48-year-old female with past history of renal stones, diabetes, hypertension, dyslipidemia, gout, GERD, asthma presenting with severe left flank pain. In the ED, temperature was 97.7, pulse 101, respiratory rate 18, blood pressure 148/85, saturating 98% on room air. WBC 15.1, creatinine 0.97, urinalysis showed large leukocyte esterase, occasional bacteria. CT abdomen pelvis shows no obstructing 9.3 mm left UPJ calculus with mild to moderate left hydronephrosis. Urology consulted. Recommending outpatient follow-up and intervention. Subjective: Patient seen and examined at bedside. No acute events overnight. Does have occasional left flank pain. Pertinent positives and negatives as discussed above, a complete review of systems was performed and all other systems are negative. Vitals Signs Reviewed. General: Nontoxic, no distress, appears at stated age, morbidly obese Derm: Warm, dry Head: Atraumatic, normocephalic, symmetric Eyes: EOMI, no lid lag, anicteric sclera Mouth: No lip lesion, mucus membranes moist Cardiovascular: S1S2 reg, no murmur Lungs: CTA bilateral, no rhonchi, no rales, no accessory muscle use Abdominal: Soft, nontender to palpation, no guarding, no appreciable organomegaly Ext: No gross muscle atrophy, no edema, no contractures Neuro: CN II-XI grossly intact, no focal neuro deficits Psych: Alert, oriented, appropriate affect Data Reviewed Today: Pertinent Labs: WBC 11.6, hemoglobin 10.3, platelet 357, creatinine 1.65, blood glucose range between 1 16-1 24, A1c 7.9 Imaging: No new imaging Assessment and Plan: Active: Left obstructing renal calculus, with mild to moderate hydronephrosis Sepsis secondary to urinary tract infection Acute kidney injury History of hypertension -Discussed management with urology, likely intervention outpatient, needs clearance of infection -Continue on IV ceftriaxone 1 g every 24 hours -Blood cultures pending, urine cultures pending -Lisinopril discontinued, hold antihypertensives -Pain control with IV morphine as needed, monitor for sedation -Continue normal saline at 150 cc an hour -Repeat CBC and BMP tomorrow, if renal function improving tomorrow, will discharge Type 2 diabetes - Levemir 20, sliding scale insulin, monitor for hypoglycemia Chronic: Gout Dyslipidemia GERD Asthma DVT ppx: SCDs Code status: Full code Anticipated discharge place: Pending clinical course Anticipated discharge time: Pending clinical course Objective - Vital Signs Vital signs: Vital Signs Temp 98.7 F 08/13/23 07:20 Pulse 95 08/13/23 07:20 Resp 18 08/13/23 07:20 BP 96/61 08/13/23 07:20 Pulse Ox 94 L 08/13/23 07:20 FiO2 Intake & Output 08/12/23 08/13/23 08/13/23 18:59 06:59 18:59 Intake Total 300 118 Balance 300 118 Weight 120.202 kg Intake: Oral 300 118 Other: # Voids 1 1 - Labs CBC & Chem 7: 08/13/23 04:49 08/13/23 04:49 Labs: Abnormal Lab Results - Last 24 Hours (Table) 08/12/23 08/12/23 08/12/23 Range/Units 15:40 17:59 21:14 WBC 12.1 H (3.8-10.6) k/uL RBC 3.35 L (3.80-5.40) m/uL Hgb 9.9 L D (11.4-16.0) gm/dL Hct 30.8 L (34.0-46.0) % Neutrophils # 10.8 H (1.3-7.7) k/uL Lymphocytes # 0.7 L (1.0-4.8) k/uL Sodium (137-145) mmol/L BUN (7-17) mg/dL Creatinine (0.52-1.04) mg/dL Glucose (74-99) mg/dL POC Glucose (mg/dL) 114 H 157 H (70-110) mg/dL Hemoglobin A1c (<=6.0) % 08/13/23 08/13/23 08/13/23 Range/Units 01:14 04:49 04:49 WBC 11.6 H (3.8-10.6) k/uL RBC 3.44 L (3.80-5.40) m/uL Hgb 10.3 L (11.4-16.0) gm/dL Hct 31.3 L (34.0-46.0) % Neutrophils # 8.9 H (1.3-7.7) k/uL Lymphocytes # (1.0-4.8) k/uL Sodium (137-145) mmol/L BUN (7-17) mg/dL Creatinine (0.52-1.04) mg/dL Glucose (74-99) mg/dL POC Glucose (mg/dL) 123 H (70-110) mg/dL Hemoglobin A1c 7.9 H (<=6.0) % 08/13/23 08/13/23 08/13/23 Range/Units 04:49 05:15 12:22 WBC (3.8-10.6) k/uL RBC (3.80-5.40) m/uL Hgb (11.4-16.0) gm/dL Hct (34.0-46.0) % Neutrophils # (1.3-7.7) k/uL Lymphocytes # (1.0-4.8) k/uL Sodium 133 L (137-145) mmol/L BUN 19 H (7-17) mg/dL Creatinine 1.65 H (0.52-1.04) mg/dL Glucose 116 H (74-99) mg/dL POC Glucose (mg/dL) 122 H 124 H (70-110) mg/dL Hemoglobin A1c (<=6.0) % Microbiology - Last 24 Hours (Table) 08/11/23 19:00 Blood Culture - Preliminary Blood 08/11/23 19:25 Blood Culture - Preliminary Blood
[2023-08-13 18:05] LABS: Glucose,Whole Blood 173 mg/dL (70-110)
[2023-08-14 00:13] LABS: Glucose,Whole Blood 145 mg/dL (70-110)
[2023-08-14] MEDS: bisacodyL 5 MG TABLET.DR PO STA (03:24)
[2023-08-14 04:25] LABS: Basophils % (A) 0 %; Eosinophils # (A) 0.2 k/uL (0-0.7); Eosinophils % (A) 2 %; HCT 28.4 % (34.0-46.0); HGB 9.3 gm/dL (11.4-16.0); Lymphocytes # (A) 1.6 k/uL (1.0-4.8); Lymphocytes % (A) 18 %; MCH 29.3 pg (25.0-35.0); MCHC 32.6 g/dL (31.0-37.0); MCV 89.7 fL (80.0-100.0); Mean Platelet Volume 7.4; Monocytes # (A) 0.6 k/uL (0-1.0); Monocytes % (A) 7 %; Neutrophils # (A) 6.2 k/uL (1.3-7.7); Neutrophils % (A) 70 %; Platelet Count 345 k/uL (150-450); RBC 3.17 m/uL (3.80-5.40); RDW 14.7 % (11.5-15.5); WBC 8.9 k/uL (3.8-10.6)
[2023-08-14 04:34] LABS: African American GFR (CKD) 43 (>60 ml/min/1.73 sqM); Anion Gap 7 mmol/L; Blood Urea Nitrogen 15 mg/dL (7-17); Calcium 9.1 mg/dL (8.4-10.2); Carbon Dioxide 23 mmol/L (22-30); Chloride 104 mmol/L (98-107); Glucose 133 mg/dL (74-99); Non-African American GFR(CKD) 37 (>60 ml/min/1.73 sqM); Potassium 4.2 mmol/L (3.5-5.1); Sodium 134 mmol/L (137-145)
[2023-08-14 06:21] LABS: Glucose,Whole Blood 126 mg/dL (70-110)
[2023-08-14 08:34] VITALS: BP 99/64; PULSE 87; RESP 15; TEMP 98.9
--- NOTE | 2023-08-14 12:08 | P.DS ---
Providers Date of admission: 08/11/23 19:39 Expected date of discharge: 08/14/23 Attending physician: Migue Garcia MD Consults: 08/11/23 18:02 Consult Physician Urgent Consulting Provider: Jim De Jseus Consult Reason/Comments: Nephrolithiasis Do you want consulting provider notified?: Yes Primary care physician: Natalya Blankenship Hospital Course: Discharge Diagnosis: Left obstructing renal calculus, with mild to moderate hydronephrosis Sepsis secondary to urinary tract infection Acute kidney injury hypertension Type 2 diabetes Hospital Course: 48-year-old female with past history of renal stones, diabetes, hypertension, dyslipidemia, gout, GERD, asthma presenting with severe left flank pain. In the ED, temperature was 97.7, pulse 101, respiratory rate 18, blood pressure 148/85, saturating 98% on room air. WBC 15.1, creatinine 0.97, urinalysis showed large leukocyte esterase, occasional bacteria. CT abdomen pelvis shows no obstructing 9.3 mm left UPJ calculus with mild to moderate left hydronephrosis. Urology consulted. Recommending outpatient follow-up and intervention. Patient being discharged with oral antibiotics. She will follow-up with PCP, repeat BMP outpatient to monitor renal function. Pain has improved at the time of discharge. Patient seen and examined at bedside. Vital signs reviewed and stable. General: Nontoxic, no distress, appears at stated age, morbidly obese Derm: Warm, dry Head: Atraumatic, normocephalic, symmetric Eyes: EOMI, no lid lag, anicteric sclera Mouth: No lip lesion, mucus membranes moist Cardiovascular: S1S2 reg, no murmur Lungs: CTA bilateral, no rhonchi, no rales, no accessory muscle use Abdominal: Soft, nontender to palpation, no guarding, no appreciable organomegaly Ext: No gross muscle atrophy, no edema, no contractures Neuro: CN II-XI grossly intact, no focal neuro deficits Psych: Alert, oriented, appropriate affect A total of 33 minutes of time were spent preparing this complex discharge summary. Patient was discharged on 08/14/2023 at 1127. Patient Condition at Discharge: Stable Plan - Discharge Summary Discharge Rx Participant: Yes New Discharge Prescriptions: New Cefdinir 300 mg PO Q12HR #20 cap HYDROcodone/APAP 5-325MG [[place] 5-325] 1 tab PO Q6HR PRN 3 Days #12 tab PRN Reason: Severe Breakthrough Pain Continue Magnesium Oxide [Mag-Ox] 400 mg PO DAILY allopurinoL [Zyloprim] 100 mg PO DAILY Montelukast [Singulair] 10 mg PO HS Loratadine [Claritin] 10 mg PO HS Atorvastatin [Lipitor] 20 mg PO HS metFORMIN HCL [Glucophage] 500 mg PO DAILY buPROPion HCL [Wellbutrin XL] 150 mg PO DAILY Melatonin 5 mg PO HS PRN PRN Reason: Insomnia Cholecalciferol (Vitamin D3) [Vitamin D3 (50 Mcg = 2000 Iu)] 50 mcg PO DAILY Secukinumab [Cosentyx Sensoready (2 Pens)] 150 mg SQ QMONTHLY Pioglitazone [Actos] 30 mg PO DAILY Fluticasone Nasal [place] [Flonase Nasal [place]] 1 spray EA NOSTRIL DAILY PRN PRN Reason: Allergy Symptoms Omeprazole [PriLOSEC] 20 mg PO DAILY Insulin Glargine,Hum.rec.anlog [Lantus Solostar Pen] 36 units SQ HS Aspirin [[place] Aspirin EC] 81 mg PO DAILY Discontinued metFORMIN HCL [Glucophage] 1,000 mg PO W/SUPPER Lisinopril-Hctz 20-25 mg [Zestoretic 20-25] 1 tab PO DAILY Naproxen [Naprosyn] 500 mg PO BID PRN PRN Reason: Pain Discharge Medication List Aspirin [[place] Aspirin EC] 81 mg PO DAILY 08/11/23 [History] Atorvastatin [Lipitor] 20 mg PO HS 08/11/23 [History] Cholecalciferol (Vitamin D3) [Vitamin D3 (50 Mcg = 2000 Iu)] 50 mcg PO DAILY 08/11/23 [History] Fluticasone Nasal [place] [Flonase Nasal [place]] 1 spray EA NOSTRIL DAILY PRN 08/11/23 [History] Insulin Glargine,Hum.rec.anlog [Lantus Solostar Pen] 36 units SQ HS 08/11/23 [History] Loratadine [Claritin] 10 mg PO HS 08/11/23 [History] Magnesium Oxide [Mag-Ox] 400 mg PO DAILY 08/11/23 [History] Melatonin 5 mg PO HS PRN 08/11/23 [History] Montelukast [Singulair] 10 mg PO HS 08/11/23 [History] Omeprazole [PriLOSEC] 20 mg PO DAILY 08/11/23 [History] Pioglitazone [Actos] 30 mg PO DAILY 08/11/23 [History] Secukinumab [Cosentyx Sensoready (2 Pens)] 150 mg SQ QMONTHLY 08/11/23 [History] allopurinoL [Zyloprim] 100 mg PO DAILY 08/11/23 [History] buPROPion HCL [Wellbutrin XL] 150 mg PO DAILY 08/11/23 [History] metFORMIN HCL [Glucophage] 500 mg PO DAILY 08/11/23 [History] Cefdinir 300 mg PO Q12HR #20 cap 08/14/23 [Rx] HYDROcodone/APAP 5-325MG [[place] 5-325] 1 tab PO Q6HR PRN 3 Days #12 tab 08/14/23 [Rx] Follow up Appointment(s)/Referral(s): Natalya Blankenship DO [Primary Care Provider] - 1-2 days Jim De Jesus MD [STAFF PHYSICIAN] - 1 Week Patient Instructions/Handouts: Kidney Stones (DC) Activity/Diet/Wound Care/Special Instructions: Please call Urology tomorrow to make an appointment. Also please see your PCP for repeat kidney function testing in a week. Discharge Disposition: HOME SELF-CARE
== END 2023-08-14 12:04 | disposition home or self-care (01) | DRG 720 ==
LOC: EC 15:47 → 6NMEDSUR 19:39 → OBSVTOIN 19:40 → 6NMEDSUR 08-12 06:48 → UNDODISOB 08-14 12:04
PROVIDERS: ADMIT Student in an Organized Health Care Education/Training Program; ATTEND Student in an Organized Health Care Education/Training Program
DX: A41.9 Sepsis, unspecified organism (principal); E78.5 Hyperlipidemia, unspecified; E83.52 Hypercalcemia; I10 Essential (primary) hypertension; E11.9 Type 2 diabetes mellitus without complications; Z79.4 Long term (current) use of insulin; K21.9 Gastro-esophageal reflux disease without esophagitis; M10.9 Gout, unspecified; N13.6 Pyonephrosis; N17.9 Acute kidney failure, unspecified; N20.2 Calculus of kidney with calculus of ureter; Z87.891 Personal history of nicotine dependence; Z79.82 Long term (current) use of aspirin; Z79.84 Long term (current) use of oral hypoglycemic drugs; Z79.899 Other long term (current) drug therapy; Z87.442 Personal history of urinary calculi; Z28.310 Unvaccinated for COVID-19; Z88.8 Allergy status to other drugs, medicaments and biological substances
CPT/HCPCS: 36415; 74018; 74176; 80048; 80053; 81001; 82306; 82652; 83036; 83970; 84100; 85025; 87040; 87086; 96361; 96365; 96375; 96376; 99285

== ENCOUNTER → 2023-09-02 | Outpatient (CLI) | payer OTHER ==
--- NOTE | 2023-09-02 10:30 | XR ---
EXAMINATION TYPE: XR KUB DATE OF EXAM: 09/02/2023 Comparison: 08/12/2023 Clinical History: 48-year-old female N20.1 ureteral Calculus Findings: 1.1 cm density left mid abdomen. Mild stool burden. Nonobstructive bowel gas pattern. Impression: 11 mm stone remains in the expected region of the left renal collecting systems/pelvis.
== END | disposition home or self-care (01) ==
LOC: RADXRMAIN 09:42
PROVIDERS: ATTEND Urology
DX: N20.1 Calculus of ureter (principal)
CPT/HCPCS: 74018